=== PATIENT | female | born 1945 | race Caucasian/White ===

== ENCOUNTER 2018-03-13 20:47 | Emergency (ER) | payer OTHER, BC ==
--- NOTE | 2018-03-13 20:53 | PDOC ---
Rapid Medical Evaluation Time Seen by Provider: 03/13/18 20:49 Medical Evaluation: 03/13/18 20:49 I have performed a brief in-person evaluation of this patient. The patient presents with a chief complaint of: Left scapula pain s/p fall out of bed Pertinent physical exam findings: Lungs CTAB I have ordered the following: xray The patient will proceed to the ED for further evaluation. Discharge Disposition - Diagnosis Back pain - Referrals Referrals: Mc Marshall [Primary Care Provider] - - Patient Instructions - Post Discharge Activity
[2018-03-13 21:05] VITALS: BP 114/78; PULSE 52; TEMP 97.7; BMI 22.8
--- NOTE | 2018-03-13 21:45 | PDOC ---
History of Present Illness - General Chief Complaint: Injury Stated Complaint: FALL,INJURY Time Seen by Provider: 03/13/18 20:49 Past History - Past Medical History Allergies/Adverse Reactions: Allergies Allergy/AdvReac Type Severity Reaction Status Date / Time No Known Allergies Allergy Verified 03/13/18 20:49 Home Medications: Ambulatory Orders Cyclobenzaprine HCl [Flexeril -] 10 mg PO HS #10 tablet 03/13/18 Ibuprofen 800 mg PO TID #30 tablet 03/13/18 COPD: No - Suicide/Smoking/Psychosocial Hx Smoking History: Never smoked Hx Alcohol Use: No Drug/Substance Use Hx: No *Physical Exam - Vital Signs Last Vital Signs Temp Pulse Resp BP Pulse Ox 97.7 F 52 L 20 114/78 100 03/13/18 20:49 03/13/18 20:49 03/13/18 20:49 03/13/18 20:49 03/13/18 20:49 *DC/Admit/Observation/Transfer Diagnosis at time of Disposition: Back pain Qualifiers: Back pain location: thoracic back pain Chronicity: acute Back pain laterality: left Qualified Code(s): M54.6 - Pain in thoracic spine - Discharge Dispostion Disposition: HOME Condition at time of disposition: Stable Decision to Admit order: No - Referrals Referrals: Mc Marshall [Primary Care Provider] - Lee Armendariz MD [Staff Physician] - - Patient Instructions Printed Discharge Instructions: DI for Thoracic Back Pain Additional Instructions: You have upper back pain due to a muscle spasm. Please take ibuprofen 800 mg 3 times a day not to exceed 3000 mg a day. You were also prescribed Flexeril. Please take the medication before you go to bed. Do not drive after taking this medication as it may make you sleepy. You may use warm compresses on your back to help with her symptoms. Please follow-up with your primary care doctor. If your symptoms do not resolve in 3-5 days, follow-up with orthopedics. A referral has been provided for you. Return to the emergency department if you have worsening back pain, bladder or bowel incontinence, numbness and tingling in her legs, changes in the way you walk, or any new or worsening symptoms. - Post Discharge Activity
[2018-03-13] MEDS ORDERED: KETOROLAC TROMETHAMINE 30 MG/1 ML VIAL IM ONE (21:53)
[2018-03-13] MEDS ORDERED: KETOROLAC TROMETHAMINE 30 MG/1 ML VIAL ONE (21:55)
== END 2018-03-13 22:38 | disposition home or self-care (01) ==
LOC: JER 20:47
PROC: 3E0233Z Introduction of Anti-inflammatory into Muscle, Percutaneous Approach (ICD-10-PCS; principal; 2018-03-13)
DX: M54.6 Pain in thoracic spine (principal)
CPT/HCPCS: 71046-TC-FY; 73010-TC-FY; 99281-25